=== PATIENT | male | born 1965 ===

== ENCOUNTER 2017-03-18 10:11 | Emergency (ER) | payer MEDICAID ==
[2017-03-18 10:13] VITALS: BP 135/91; PULSE 107; RESP 16; TEMP 98.3
[2017-03-18 10:18] VITALS: O2SAT 98
--- NOTE | 2017-03-18 10:53 | ED PDOC ---
HPI: Psych/Substance Abuse Time Seen by Provider: 03/18/17 10:20 Chief Complaint (Nursing): Alcohol Ingestion Chief Complaint (Provider): EtOH consumption and decreased hearing History Per: Patient History/Exam Limitations: no limitations Onset/Duration Of Symptoms: Days (x1) Additional Complaint(s): Bogdan Herbert is a 51 year old male with a past medical history of EtOH abuse brought to the ED by EMS complaining of decreased hearing since yesterday. The patient admits to EtOH consumption last night. He denies trauma, bleeding, suicidal ideations, or homicidal ideations. PMD: None Provided Past Medical History Reviewed: Historical Data, Nursing Documentation, Vital Signs Vital Signs: Last Vital Signs Temp 98.3 F 03/18/17 10:12 Pulse 107 H 03/18/17 10:12 Resp 16 03/18/17 10:12 BP 135/91 H 03/18/17 10:12 Pulse Ox 98 03/18/17 10:16 - Medical History PMH: Depression, HTN Other PMH: EtOH abuse - Family History Family History: States: Unknown Family Hx - Social History Current smoker - smoking cessation education provided: No Ex-Smoker (has not smoked in the last 12 months): No Alcohol: Other (daily) Drugs: Denies - Home Medications Home Medications: Ambulatory Orders Medication Instructions Recorded Carbamide Peroxide [Debrox 15 Ml] 1 drop OT BID #1 bottle 03/18/17 - Allergies Allergies/Adverse Reactions: Allergies Allergy/AdvReac Type Severity Reaction Status Date / Time No Known Allergies Allergy Verified 03/18/17 10:15 Review of Systems ROS Statement: Except As Marked, All Systems Reviewed And Found Negative Constitutional: Negative for: Other (no trauma/bleeding) ENT: Positive for: Other (decreased hearing ) Psych: Positive for: Other (etoh consumption ). Negative for: Suicidal ideation (or homicidal ideations) Physical Exam - Reviewed Nursing Documentation Reviewed: Yes Vital Signs Reviewed: Yes - Physical Exam Appears: Positive for: Non-toxic, No Acute Distress Head Exam: Positive for: ATRAUMATIC, NORMOCEPHALIC ENT: Positive for: Other (rumination impaction bilaterally) Neurologic/Psych: Positive for: Alert, Oriented (x3). Negative for: Motor/ Sensory Deficits - ECG O2 Sat by Pulse Oximetry: 98 (RA) Pulse Ox Interpretation: Normal - Progress Re-evaluation Time: 11:58 Condition: Re-examined ([place] alert oriented x 3 no focal neuro deficits) Medical Decision Making Medical Decision Making: Time: 10:20 Impression: EtOH and decreased hearing Scribe Attestation: Documented by Mirna Tatum, acting as a scribe for Delio Cordero MD. Provider Scribe Attestation: All medical record entries made by the Scribe were at my direction and personally dictated by me. I have reviewed the chart and agree that the record accurately reflects my personal performance of the history, physical exam, medical decision making, and the department course for this patient. I have also personally directed, reviewed, and agree with the discharge instructions and disposition. Disposition - Clinical Impression Clinical Impression: Alcohol use, Impacted cerumen of both ears - Patient ED Disposition Is Patient to be Admitted: No Counseled Patient/Family Regarding: Diagnosis, Need For Followup, Rx Given - Disposition Referrals: [facility] [Outside] Disposition: Routine/Home Disposition Time: 11:59 Condition: FAIR Prescriptions: Carbamide Peroxide [Debrox 15 Ml] 1 drop OT BID #1 bottle Instructions: Cerumen Impaction (ED) Forms: [employer] (Romanian) Print Language: JAMAICAN
== END 2017-03-18 12:10 | disposition home or self-care (01) ==
LOC: H.ER 10:11
DX: F10.10 Alcohol abuse, uncomplicated (principal); F32.9 Major depressive disorder, single episode, unspecified; I10 Essential (primary) hypertension; H61.23 Impacted cerumen, bilateral